=== PATIENT | female | born 1985 | race Caucasian/White ===

== ENCOUNTER 2017-01-19 18:59 | Emergency (ER) | payer BC ==
[~2017-01-19] VITALS: Ht 167.6 cm; Wt 68.0 kg
[2017-01-19 19:02] VITALS: BP 144/73; PULSE 90; RESP 15; TEMP 98.4; O2SAT 98
[2017-01-19] MEDS ORDERED: CLIN1CAP6 PO (20:59)
[2017-01-19] MEDS ORDERED: ALA1CRE2 TOPICAL (20:59)
[2017-01-19] MEDS ORDERED: TRAZ50TA12 PO (20:59)
[2017-01-19] MEDS ORDERED: BUPR12MI SL (20:59)
[2017-01-19] MEDS ORDERED: VENL25TA PO (20:59)
[2017-01-19] MEDS ORDERED: BUSP10TA PO (20:59)
--- NOTE | 2017-01-19 21:05 | PD ---
HPI Chief Complaint: Skin Problem Time Seen by Provider: 20:49 Travel History International Travel<30 days: No Contact w/Intl Traveler<30days: No Traveled to known affect area: No History of Present Illness HPI 32-year-old female presents to emergency department for evaluation of a right buttock abscess. Patient states she has been to [facility] times for this. She had an I&D and started on Bactrim. She states it did get better but did not completely resolve. She noticed it getting bigger again and she went there yesterday they started her on clindamycin. They did a CT of her abdomen and pelvis that showed a small fluid collection in the right buttock. She states they did not drain at that time. Denies any fever or chills. States area is painful, 6 out of 10, exacerbated to a 10 out of 10 when she sits on it or touches it. She has no other symptoms to report. PFSH Past Medical History Cardiovascular Problems: Yes (murmor) Diabetes: Yes (Type 1) Patient Takes Glucophage: No Diminished Hearing: No ?: Not LMP: 01/06/17 Past Surgical History Other Surgery: Yes (DRAINAGE OF ABCESS TO THE BUTTOCKS) Social History Alcohol Use: No Tobacco Use: No Substance Use: No Allergies-Medications (Allergen,Severity, Reaction): Coded Allergies: amoxicillin (Verified Allergy, Severe, Rash, 01/19/17) cefaclor (Verified Allergy, Severe, Rash, 01/19/17) Reported Meds & Prescriptions Reported Meds & Active Scripts Active Reported Clindamycin (Clindamycin HCl) 300 Mg Cap 300 Mg PO Q6H Trazodone (Trazodone HCl) 50 Mg Tab 25 Mg PO HS Buspirone (Buspirone HCl) 10 Mg Tab 10 Mg PO TID Ala-Khadar Topical (Hydrocortisone (Topical)) 1% Cream 1 Applic TOPICAL DIRECTED Effexor (Venlafaxine HCl) 25 Mg Tab 10 Mg PO DAILY Suboxone Sublingual Film (Buprenorphine-Naloxone Sublingual Film) 12-3 Mg Film 1 Film SL DAILY Unique id number required: Review of Systems Except as stated in HPI: all other systems reviewed are Neg Physical Exam Narrative GENERAL: Well-nourished, well-developed female patient in no acute distress SKIN: There is an indurated area in the buttock which measures about 3 cm in diameter. It is fluctuant but there is no pointing or drainage. There is a zone of inflammation around it but no lymphangitis. HEAD: Normocephalic. EYES: No scleral icterus. No injection or drainage. NECK: Supple, trachea midline. No JVD or lymphadenopathy. CARDIOVASCULAR: Regular rate and rhythm without murmurs, gallops, or rubs. RESPIRATORY: Breath sounds equal bilaterally. No accessory muscle use. GASTROINTESTINAL: Abdomen soft, non-tender, nondistended. RECTAL EXAM: No masses or tenderness MUSCULOSKELETAL: No cyanosis, or edema. BACK: Nontender without obvious deformity. No CVA tenderness. Data Data Last Documented VS Vital Signs Date Time Temp Pulse Resp B/P (MAP) Pulse Ox O2 Delivery O2 Flow Rate FiO2 01/19/17 22:32 01/19/17 21:15 83 18 97 Room Air 01/19/17 19:02 98.4 Orders Orders Morphine Inj (Morphine Inj) (01/19/17 21:15) Ondansetron Odt (Zofran Odt) (01/19/17 21:15) Wound Culture And Gram Stain (01/19/17 22:06) [facility] Medical Decision Making Medical Screen Exam Complete: Yes Emergency Medical Condition: Yes Medical Record Reviewed: Yes Differential Diagnosis Soft tissue abscess versus cellulitis versus perirectal abscess versus peroneal versus folliculitis versus erysipelas Narrative Course 32-year-old female presents to emergency department for evaluation of an abscess on right buttock. She brings with her results of a CT that shows a small fluid collection in the proximal right thigh, consistent with where the patient is experiencing pain. There is an area that appears to be an isolated abscess. I&D is complete. Patient is encouraged to continue taking her antibiotic and to follow-up with primary care provider. She is counseled care and agrees to return immediately with any acute worsening of symptoms. Diagnosis Primary Impression: Abscess of right buttock Referrals: Primary Care Physician Patient Instructions: Abscess Incision and Drainage (GEN), General Instructions Additional Instructions: Warm compresses and sitz bath to the affected area Follow-up with your primary care provider Continue antibiotic until it is all gone Remove packing in 2 days. This can be done in the emergency department or at your primary care provider's office Return immediately to the emergency department with any acute worsening symptoms Med/Other Pt SpecificInfo: No Change to Meds Disposition: 01 DISCHARGE HOME Condition: Stable Sanna Salas Jan 19, 2017 21:04
[2017-01-19 21:15] VITALS: BP 132/63; PULSE 83; RESP 18; O2SAT 97
[2017-01-19] MEDS ORDERED: MORPHINE SULFATE 4 MG/ML INJ IM ONE (21:15)
[2017-01-19] MEDS ORDERED: ONDANSETRON ODT 4 MG TAB PO ONE (21:15)
--- NOTE | 2017-01-19 22:28 | PD ---
Physical Exam Date Seen by Provider: Jan 19, 2017 Time Seen by Provider: 22:00 Data Data Last Documented VS Orders Orders Morphine Inj (Morphine Inj) (01/19/17 21:15) Ondansetron Odt (Zofran Odt) (01/19/17 21:15) Wound Culture And Gram Stain (01/19/17 22:06) [facility] Medical Record Reviewed: Yes Supervised Visit with [place]: Yes Narrative Course I was asked by provider to perform an I&D on an abscess that was located on the right posterior aspect of the labia majora extending back to the anterior portion of the buttock. There is an indurated area in the right outer labia which measures about 1.5x1.5 cm in diameter. It is fluctuant but there is no pointing or drainage. There is a zone of inflammation around it but no lymphangitis. The patient is a alert oriented well-appearing 32-year-old female in no acute distress. She is anxious about the I&D procedure but cooperative. I&D was performed. Please see my procedural narrative for details. Sanna Quan NP retains care of this patient. Please see her documentation for further details and disposition of patient. Procedures Procedure Narrative INCISION AND DRAINAGE OF ABSCESS: The area was prepped and was sterilely draped. A subcutaneous wheal of 1 % Xylocaine with a total number 4 mL was used to anesthetize the area properly. A number 11 scalpel was used to make a 0.5 cm incision across the area of the abscess. The abscess was drained, complex loculations were broken down, and irrigated with normal saline. Cultures were obtained. Quarter inch iodoform packing was placed in the wound. Sterile dressing applied. Patient advised to have packing removed in two days. Diagnosis Primary Impression: Abscess of right buttock Referrals: Primary Care Physician Patient Instructions: General Instructions, Abscess Incision and Drainage (GEN) Additional Instruction: Warm compresses and sitz bath to the affected area Follow-up with your primary care provider Continue antibiotic until it is all gone Remove packing in 2 days. This can be done in the emergency department or at your primary care provider's office Return immediately to the emergency department with any acute worsening symptoms Disposition: 01 DISCHARGE HOME Condition: Stable Lissette Rangel Jan 19, 2017 22:28
== END 2017-01-19 22:39 | disposition home or self-care (01) ==
LOC: NEPD 18:59
DX: L02.31 Cutaneous abscess of buttock (principal); B95.1 Streptococcus, group B, as the cause of diseases classified elsewhere; B37.2 Candidiasis of skin and nail
CPT/HCPCS: 10061; 87070; 87184; 87186; 96372; 99284; J2270; 87205